=== PATIENT | female | born 1955 | race Caucasian/White ===

== ENCOUNTER 2020-08-30 10:35 | Inpatient (IN) | payer MEDICARE, BC ==
[2020-08-30] MEDS ORDERED: Ondansetron 4 MG Tab.DIS PO PRN (13:44)
[2020-08-30] MEDS ORDERED: Sodium Chloride 0.9% 10 ML Syringe FLUSH PRN (13:44)
[2020-08-30] MEDS ORDERED: Docusate Sodium 100 MG Cap PO PRN (13:44)
[2020-08-30] MEDS ORDERED: Acetaminophen 325 MG Tab PO PRN (13:44)
--- NOTE | 2020-08-30 13:53 | PCM.HP.2 ---
H&P History of Present Illness - General Date of Service: 08/30/20 Admit Problem/Dx: Admission Diagnosis/Problem Admission Diagnosis/Problem Hypoxia, positive COVID-19, history of stroke with aphasia Source of Information: Patient, EMS Notes Reviewed History Limitations: Reports: No Limitations - History of Present Illness Initial Comments - Free Text/Narative: The patient is a 65-year-old lady who was accepted as a direct admission from [facility] for Covid 19. The patient reports that for the past 4 days she has had difficulty with fever and chills along with shortness of breath and has been hypoxic. Patient also says that she has had some nausea associated. The patient has denied any aggravating or relieving factors however, she is more short of breath when she is moving around her house. The patient also has a history of a stroke 4 years ago and she does have residual aphasia. She reportedly had been anticoagulated with Eliquis for her atrial fibrillation however this is not on her medication reconciliation list. The patient says that she also has been very weak and fatigued. The patient also has had a nonproductive cough. The patient has no other complaints at the present time. Onset of Symptoms: Reports: Gradual Duration of Symptoms: Reports: Day(s):, Getting Worse Location: Reports: Chest, Generalized Quality: Reports: Ache Severity: Moderate Improves with: Reports: Other (Oxygen) Worsens with: Reports: Breathing, Movement Context: Reports: Sick Contact Associated Symptoms: Reports: Cough, Fever/Chills, Nausea/Vomiting, Shortness of Breath - Related Data Allergies/Adverse Reactions: Allergies Allergy/AdvReac Type Severity Reaction Status Date / Time esomeprazole [From Nexium] Allergy Other Verified 08/20/16 12:12 Latex, Natural Rubber Allergy Hives Verified 08/20/16 12:12 barium iodide AdvReac Nausea and Verified 08/30/20 13:54 Vomiting Home Medications: Home Meds DULoxetine [Cymbalta] 20 mg PO ASDIRECTED 08/30/20 [History] Diltiazem [Tiazac] 180 mg PO DAILY 08/30/20 [History] Famotidine [Pepcid] 20 mg PO BID 08/30/20 [History] Letrozole [Femara] 2.5 mg PO DAILY 08/30/20 [History] atorvaSTATin [Lipitor] 10 mg PO BEDTIME 10/20/20 [History] Past Medical History HEENT History: Reports: Cataract, Impaired Vision, Other (See Below) Other HEENT History: rt eye damage from stress; sensitivity to sound after stroke- resolved Cardiovascular History: Reports: Afib, Blood Clots/VTE/DVT, High Cholesterol, Other (See Below) Other Cardiovascular History: mitral valve regurg Gastrointestinal History: Reports: Chronic Constipation, GERD, Hemorrhoids, Hiatal Hernia Genitourinary History: Reports: Renal Calculus, Retention, Urinary, Urinary Incontinence 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 Musculoskeletal History: Reports: Arthritis, Back Pain, Chronic Neurological History: Reports: CVA, Neuropathy, Peripheral Other Neuro History: expressive aphasia; dyspagia had peg tube and TPN- resolved swallowing issues post CVA Psychiatric History: Reports: Other (See Below) Other Psychiatric History: started on antidepressant recently Endocrine/Metabolic History: Reports: Other (See Below) Other Endocrine/Metabolic History: elevated hemoglobin A1C 5.6 ; thyroid nodules in past Hematologic History: Reports: Anticoagulation Therapy, Blood Transfusion(s) Oncologic (Cancer) History: Reports: Breast Dermatologic History: Reports: Other (See Below) Other Dermatologic History: shingles - Infectious Disease History Infectious Disease History: Reports: Influenza, Novel Coronavirus, Shingles - Past Surgical History HEENT Surgical History: Reports: Cataract Surgery GI Surgical History: Reports: Cholecystectomy, Colonoscopy, Polypectomy Female Surgical History: Reports: Mastectomy, Oophorectomy Other Female Surgeries/Procedures: right oophrectomy; partial mastectomy on left Musculoskeletal Surgical History: Reports: None Social & Family History - Tobacco Use Tobacco Use Within Last Twelve Months: No - Caffeine Use Caffeine Use: Reports: None - Living Situation & Occupation Living situation: Reports: H&P Review of Systems - Review of Systems: Review Of Systems: See Below General: Reports: Fever, Chills, Malaise, Fatigue HEENT: Reports: No Symptoms Pulmonary: Reports: Shortness of Breath, Cough Cardiovascular: Reports: No Symptoms Gastrointestinal: Reports: Nausea Genitourinary: Reports: No Symptoms Musculoskeletal: Reports: No Symptoms Skin: Reports: No Symptoms Psychiatric: Reports: No Symptoms Neurological: Reports: Pre-Existing Deficit, Difficulty Walking Hematologic/Lymphatic: Reports: No Symptoms Immunologic: Reports: No Symptoms Exam - Exam Exam: See Below - Exam Quality Assessment: Supplemental Oxygen General: Alert, Oriented, Cooperative, Mild Distress HEENT: Conjunctiva Clear, EACs Clear, EOMI, Hearing Intact, Mucosa Moist & [place] Neck: Supple, Trachea Midline Lungs: Clear to Auscultation, Normal Respiratory Effort Cardiovascular: Regular Rate, Irregular Rhythm GI/Abdominal Exam: Normal Bowel Sounds, Soft, Non-Tender, No Distention (Female) Exam: Deferred Rectal (Female) Exam: Deferred Back Exam: Normal Inspection, Full Range of Motion Extremities: Normal Inspection, Normal Range of Motion, No Pedal Edema Skin: Warm, Dry, Intact Neurological: Cranial Nerves Intact, Focal Deficit. No: Normal Gait Neuro Extensive - Mental Status: Alert, Oriented x3 Neuro Extensive - Motor, Sensory, Reflexes: CN II-XII Intact, Expressive Aphasia Psychiatric: Alert, Normal Affect, Normal Mood - Problem List (1) COVID-19 SNOMED Code(s): 546409679 ICD Code: U07.1 - COVID-19 Status: Acute Priority: High Current Visit: Yes (2) Atrial fibrillation SNOMED Code(s): 77048221 ICD Code: I48.91 - UNSPECIFIED ATRIAL FIBRILLATION Status: Chronic Priority: High Current Visit: Yes Qualifiers: Atrial fibrillation type: persistent (not longstanding) Qualified Code(s): I48.19 - Other persistent atrial fibrillation; I48.1 - Persistent atrial fibrillation (3) Current use of retirement anticoagulation SNOMED Code(s): 831538549 ICD Code: Z79.01 - 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 (CURRENT) USE OF ANTICOAGULANTS Status: Chronic Priority: High Current Visit: Yes (4) Aphasia SNOMED Code(s): 33735612 ICD Code: R47.01 - APHASIA Status: Chronic Priority: High Current Visit: Yes (5) Personal history of stroke with residual effects SNOMED Code(s): 3383084065834 ICD Code: I69.30 - UNSPECIFIED SEQUELAE OF CEREBRAL INFARCTION Status: Chronic Priority: Medium Current Visit: Yes Problem List Initiated/Reviewed/Updated: Yes Orders Last 24hrs: Active Orders 24 hr Category Date Time Status Patient Status [ADT] Routine ADT 08/30/20 13:44 Ordered Cardiac Monitoring [RC] CONTINUOUS Care 08/30/20 13:47 Ordered Oxygen Therapy [RC] PRN Care 08/30/20 13:44 Ordered Peripheral IV Care [RC] . DIRECTED Care 08/30/20 13:50 Ordered Up ad Liana [RC] ASDIRECTED Care 08/30/20 13:44 Ordered VTE/DVT Education [RC] PER UNIT ROUTINE Care 08/30/20 13:44 Ordered Vital Signs [RC] Q4H Care 08/30/20 13:44 Ordered OT Evaluation and Treatment [CONS] Routine Cons 08/30/20 13:44 Ordered PT Evaluation and Treatment [CONS] Routine Cons 08/30/20 13:44 Ordered Heart Healthy Diet [DIET] Diet 08/30/20 Dinner Ordered Chest 1V Frontal [CR] Routine Exams 08/30/20 13:44 Ordered CBC WITH AUTO DIFF [HEME] Routine Lab 08/30/20 13:44 Ordered COMPREHENSIVE METABOLIC PN,CMP [CHEM] Routine Lab 08/30/20 13:44 Ordered FERRITIN [CHEM] Routine Lab 08/30/20 13:44 Ordered LACTATE DEHYDROGENASE,LDH [CHEM] Routine Lab 08/30/20 13:44 Ordered MAGNESIUM [CHEM] Routine Lab 08/30/20 13:44 Ordered PHOSPHORUS [CHEM] Routine Lab 08/30/20 13:44 Ordered PRO B-TYPE NATRIUR PEPT,BNPPRO [CHEM] Routine Lab 08/30/20 13:44 Ordered PROCALCITONIN [REF] Routine Lab 08/30/20 13:44 Ordered TROPONIN I [CHEM] Routine Lab 08/30/20 13:44 Ordered VITAMIN D,25-HYDROXY [CHEM] Routine Lab 08/30/20 13:44 Ordered Acetaminophen [TylenoL] Med 08/30/20 13:44 Ordered 650 mg PO Q4H PRN DULoxetine [Cymbalta] Med 08/30/20 14:00 Ordered 20 mg PO ASDIRECTED Diltiazem [Tiazac] Med 08/31/20 09:00 Ordered 180 mg PO DAILY Docusate Sodium [Colace] Med 08/30/20 13:44 Ordered 100 mg PO BID PRN Enoxaparin [Lovenox] Med 08/30/20 14:00 Ordered 40 mg SUBCUT DAILY Famotidine [Pepcid] Med 08/30/20 21:00 Ordered 20 mg PO BID Letrozole Med 08/31/20 09:00 Ordered 2.5 mg PO DAILY Ondansetron [Zofran ODT] Med 08/30/20 13:44 Ordered 4 mg PO Q6H PRN Sodium Chloride 0.9% [Normal Saline] 1,000 ml Med 08/30/20 13:45 Ordered IV ASDIRECTED Sodium Chloride 0.9% [Saline Flush] Med 08/30/20 13:44 Ordered 10 ml FLUSH ASDIRECTED PRN Temazepam [Restoril] Med 08/30/20 13:44 Ordered 7.5 mg PO BEDTIME PRN atorvaSTATin Med 08/30/20 21:00 Ordered 10 mg PO BEDTIME Peripheral IV Insertion Adult [OM.PC] Routine Oth 08/30/20 13:44 Ordered Resuscitation Status Routine Resus Stat 08/30/20 13:44 Ordered Medication Orders Acetaminophen (Tylenol) 650 mg PO Q4H PRN PRN Reason: Pain (Mild 1-3)/fever Docusate Sodium (Colace) 100 mg PO BID PRN PRN Reason: Constipation Enoxaparin Sodium (Lovenox) 40 mg SUBCUT DAILY JOYA Sodium Chloride (Normal Saline) 1,000 mls @ 75 mls/hr IV ASDIRECTED JOYA Ondansetron HCl (Zofran Odt) 4 mg PO Q6H PRN PRN Reason: nausea, able to take PO Sodium Chloride (Saline Flush) 10 ml FLUSH ASDIRECTED PRN PRN Reason: Keep Vein Open Temazepam (Restoril) 7.5 mg PO BEDTIME PRN PRN Reason: Sleep Assessment/Plan Comment:: The patient is a 65-year-old lady who has been admitted as an inpatient for the treatment of Covid. The patient will be started on the Covid protocol consisting of remdesivir 200 mg x 1 dose followed by 100 mg IV daily for 4 doses. The patient also has been started on dexamethasone starting tomorrow. The patient says that she is taking Eliquis however is not in her medication reconciliation and as a result of this the patient will be started on Lovenox. The home Eliquis will be discontinued for now. I have ordered a comprehensive set of laboratory testings for the COVID-19 work-up. A portable chest x-ray is also been ordered. The patient will have a healthy diet as tolerated. PT OT has been ordered for the patient as a result of her stroke 4 years ago. The patient also has been encouraged to ambulate. Patient also has been recommended for convalescent plasma. I have discussed with the patient the risk benefits and alternatives of both remdesivir and convalescent plasma. 1. I spoke with Carola to provide information about convalescent plasma for Sonya 2. I offered them the Facts Sheet for Patients and Parents/Caregivers for COVID-19 convalescent plasma to read and review. 3. I stated that the therapy has been approved by the Emergency Use Authorization (EUA) process and not fully been FDA reviewed or approved. 4. I shared potential risk from the therapy including transmission of blood borne pathogens such as HIV and hepatitis C, allergic and transfusion related reactions, post-transfusion purpura. Additionally, theoretical risks including a phenomenon called anti-body dependent enhancement of infection such as seen in dengue fever or attenuation of an immune response that may make patients more susceptible to re-infection. 5. I discussed there are other potential treatment options that are currently not FDA approved to treat COVID-19. 6. Discussed with the patient that is not an exclusion for convalescent plasma treatment, but the therapy has not been fully evaluated in patients. 7. Offered the opportunity to ask questions and all questions were answered. 8. Sonya voiced understanding and agreed to proceed with treatment for Sonya. 1. I spoke with Sonya to provide information about Remdesvir for her. 2. I offered them the Facts Sheet for Patients and Parents/Caregivers for COVID-19 Remdesvir to read and review. 3. I stated that the therapy has been approved by the Emergency Use Authorization (EUA) process and not fully been FDA reviewed or approved. 4. The patient meets EUA requirements. 5. I shared that the drug may cause liver abnormalities and infusion related side effects. Additionally, other side effects are possible but not known as the drug has had limited studies. 6. I discussed there are other potential treatment options that are currently not FDA approved to treat COVID-19. Plasma treatment, but the therapy has not been fully evaluated in patients. 7. Discussed with the patient that is not an exclusion for Remdesvir treatment. 8. Offered the opportunity to ask questions and all questions were answered. 9. Sonya voiced understanding and agreed to proceed with treatment for her. - Mortality Measure Prognosis:: Good
[2020-08-30] MEDS ORDERED: Dexamethasone 4 MG/ML SDV IV SCH (14:00)
[2020-08-30] MEDS ORDERED: DULoxetine 20 MG Cap PO SCH (14:00)
[2020-08-30] MEDS ORDERED: Sodium Chloride 0.9% 0 ML ONE (14:24)
[2020-08-30] MEDS: Sodium Chloride 0.9% 1,000 ML IV SCH (14:26)
[2020-08-30] MEDS: Enoxaparin 40 MG/0.4 ML Syringe SUBCUT SCH (14:27)
[2020-08-30] MEDS: Famotidine 20 MG Tab PO SCH (20:34)
[2020-08-30] MEDS: Simvastatin 10 MG Tab PO SCH (20:34)
[2020-08-30] MEDS ORDERED: Temazepam 7.5 MG Cap PO PRN (21:00)
[2020-08-31] MEDS: Sodium Chloride 0.9% 1,000 ML IV SCH ×2 (04:51→17:36)
[2020-08-31] MEDS: Enoxaparin 40 MG/0.4 ML Syringe SUBCUT SCH (08:31)
[2020-08-31] MEDS: Famotidine 20 MG Tab PO SCH ×2 (08:32→20:31)
[2020-08-31] MEDS: Diltiazem 180 MG Cap.CD PO SCH (08:32)
[2020-08-31] MEDS ORDERED: Dexamethasone 4 MG/ML SDV IV SCH (09:00)
[2020-08-31] MEDS ORDERED: Diltiazem 180 MG Cap.CD PO SCH (09:00)
--- NOTE | 2020-08-31 09:44 | PCM.PN ---
- General Info Date of Service: 08/31/20 Admission Dx/Problem (Free Text): Admission Diagnosis/Problem Admission Diagnosis/Problem Hypoxia, positive COVID-19, history of stroke with aphasia Subjective Update: The patient is a 65-year-old lady who was admitted yesterday secondary to hypoxia and COVID-19. The patient today says that she feels a little bit better. She has been tolerating diet. She has been ambulating. She does need assistance secondary to residual effects from an old stroke. Functional Status: Reports: Pain Controlled, Tolerating Diet, Ambulating - Review of Systems General: Reports: Weakness HEENT: Reports: No Symptoms Pulmonary: Reports: Shortness of Breath Cardiovascular: Reports: Palpitations (Chronic A. fib) Gastrointestinal: Reports: No Symptoms Genitourinary: Reports: No Symptoms Musculoskeletal: Reports: No Symptoms Skin: Reports: No Symptoms Neurological: Reports: Pre-Existing Deficit, Trouble Speaking Psychiatric: Reports: No Symptoms - Patient Data Vitals - Most Recent: Last Vital Signs Temp 36.6 C 08/31/20 08:02 Pulse 69 08/31/20 08:02 Resp 16 08/31/20 08:02 BP 120/68 08/31/20 08:02 Pulse Ox 91 L 08/31/20 08:02 Weight - Most Recent: 63.458 kg I&O - Last 24 Hours: Intake & Output 08/30/20 08/31/20 08/31/20 22:59 06:59 14:59 Intake Total 1175 700 Output Total 700 1050 Balance 475 -350 Lab Results Last 24 Hours: Laboratory Results - last 24 hr 08/30/20 08/30/20 08/30/20 Range/Units 14:10 14:10 14:10 WBC 9.13 (3.98-10.04) K/mm3 RBC 4.20 (3.98-5.22) M/mm3 Hgb 12.5 (11.2-15.7) gm/dl Hct 37.6 (34.1-44.9) % MCV 89.5 D (79.4-94.8) fl MCH 29.8 (25.6-32.2) pg MCHC 33.2 (32.2-35.5) g/dl RDW Std Deviation 45.9 (36.4-46.3) fL Plt Count 241 (182-369) K/mm3 MPV 9.2 L (9.4-12.3) fl Neut % (Auto) 95.0 H (34.0-71.1) % Lymph % (Auto) 2.5 L (19.3-51.7) % Amelia % (Auto) 2.1 L (4.7-12.5) % Eos % (Auto) 0.1 L (0.7-5.8) Baso % (Auto) 0.2 (0.1-1.2) % Neut # (Auto) 8.67 H (1.56-6.13) K/mm3 Lymph # (Auto) 0.23 L (1.18-3.74) K/mm3 Amelia # (Auto) 0.19 L (0.24-0.36) K/mm3 Eos # (Auto) 0.01 L (0.04-0.36) K/mm3 Baso # (Auto) 0.02 (0.01-0.08) K/mm3 Manual Slide Review Abnormal smear Sodium 133 L (136-145) mEq/L Potassium 4.1 (3.5-5.1) mEq/L Chloride 98 (98-107) mEq/L Carbon Dioxide 23 (21-32) mEq/L Anion Gap 16.1 H (5-15) BUN 6 L (7-18) mg/dL Creatinine 0.7 (0.55-1.02) mg/dL Est Cr Clr Drug Dosing TNP Estimated GFR (MDRD) > 60 (>60) mL/min BUN/Creatinine Ratio 8.6 L (14-18) Glucose 153 H (80-115) mg/dL Calcium 9.3 (8.5-10.1) mg/dL Phosphorus 2.7 (2.6-4.7) mg/dL Magnesium 1.9 (1.8-2.4) mg/dl Ferritin (8-252) ng/ml Total Bilirubin 0.4 (0.2-1.0) mg/dL AST 30 (15-37) U/L ALT 43 (14-59) U/L Alkaline Phosphatase 67 (46-116) U/L Lactate Dehydrogenase 286 H (81-234) U/L Troponin I < 0.017 (0.00-0.056) ng/mL NT-Pro-B Natriuret Pep 196 H (0-125) pg/mL Total Protein 6.9 (6.4-8.2) g/dl Albumin 2.6 L (3.4-5.0) g/dl Globulin 4.3 gm/dL Albumin/Globulin Ratio 0.6 L (1-2) Vitamin D 25-Hydroxy 46.0 (30.0-100.0) ng/ml Blood Type 08/30/20 08/30/20 Range/Units 14:10 14:10 WBC (3.98-10.04) K/mm3 RBC (3.98-5.22) M/mm3 Hgb (11.2-15.7) gm/dl Hct (34.1-44.9) % MCV (79.4-94.8) fl MCH (25.6-32.2) pg MCHC (32.2-35.5) g/dl RDW Std Deviation (36.4-46.3) fL Plt Count (182-369) K/mm3 MPV (9.4-12.3) fl Neut % (Auto) (34.0-71.1) % Lymph % (Auto) (19.3-51.7) % Amelia % (Auto) (4.7-12.5) % Eos % (Auto) (0.7-5.8) Baso % (Auto) (0.1-1.2) % Neut # (Auto) (1.56-6.13) K/mm3 Lymph # (Auto) (1.18-3.74) K/mm3 Amelia # (Auto) (0.24-0.36) K/mm3 Eos # (Auto) (0.04-0.36) K/mm3 Baso # (Auto) (0.01-0.08) K/mm3 Manual Slide Review Sodium (136-145) mEq/L Potassium (3.5-5.1) mEq/L Chloride (98-107) mEq/L Carbon Dioxide (21-32) mEq/L Anion Gap (5-15) BUN (7-18) mg/dL Creatinine (0.55-1.02) mg/dL Est Cr Clr Drug Dosing Estimated GFR (MDRD) (>60) mL/min BUN/Creatinine Ratio (14-18) Glucose (80-115) mg/dL Calcium (8.5-10.1) mg/dL Phosphorus (2.6-4.7) mg/dL Magnesium (1.8-2.4) mg/dl Ferritin 775 H (8-252) ng/ml Total Bilirubin (0.2-1.0) mg/dL AST (15-37) U/L ALT (14-59) U/L Alkaline Phosphatase (46-116) U/L Lactate Dehydrogenase (81-234) U/L Troponin I (0.00-0.056) ng/mL NT-Pro-B Natriuret Pep (0-125) pg/mL Total Protein (6.4-8.2) g/dl Albumin (3.4-5.0) g/dl Globulin gm/dL Albumin/Globulin Ratio (1-2) Vitamin D 25-Hydroxy (30.0-100.0) ng/ml Blood Type A POSITIVE Med Orders - Current: Current Medications Acetaminophen (Tylenol) 650 mg PO Q4H PRN PRN Reason: Pain (Mild 1-3)/fever Dexamethasone (Dexamethasone) 6 mg IV DAILY [facility] Last Admin: 08/31/20 08:33 Dose: 6 mg Documented by: Diltiazem HCl (Cardizem Cd) 180 mg PO DAILY [facility] Last Admin: 08/31/20 08:32 Dose: 180 mg Documented by: Docusate Sodium (Colace) 100 mg PO BID PRN PRN Reason: Constipation Duloxetine HCl (Cymbalta) 20 mg PO Q48H [facility] Enoxaparin Sodium (Lovenox) 40 mg SUBCUT DAILY [facility] Last Admin: 08/31/20 08:31 Dose: 40 mg Documented by: Famotidine (Pepcid) 20 mg PO BID [facility] Last Admin: 08/31/20 08:32 Dose: Not Given Documented by: Sodium Chloride (Normal Saline) 1,000 mls @ 75 mls/hr IV ASDIRECTED [facility] Last Admin: 08/31/20 04:51 Dose: 75 mls/hr Documented by: Remdesivir 100 mg/ Sodium (Chloride) 100 mls @ 100 mls/hr IV Q24H [facility] Stop: 09/03/20 15:29 Ondansetron HCl (Zofran Odt) 4 mg PO Q6H PRN PRN Reason: nausea, able to take PO Letrozole 2.5 Mg 0 each PO DAILY [facility] Simvastatin (Zocor) 10 mg PO BEDTIME [facility] Last Admin: 08/30/20 20:34 Dose: 10 mg Documented by: Sodium Chloride (Saline Flush) 10 ml FLUSH ASDIRECTED PRN PRN Reason: Keep Vein Open Temazepam (Restoril) 7.5 mg PO BEDTIME PRN PRN Reason: Sleep Discontinued Medications Dexamethasone (Dexamethasone) 6 mg IV DAILY [facility] Last Admin: 08/30/20 14:07 Dose: Not Given Documented by: Diltiazem HCl (Cardizem Cd) 180 mg PO DAILY [facility] Duloxetine HCl (Cymbalta) 20 mg PO DAILY [facility] Last Admin: 08/30/20 14:28 Dose: Not Given Documented by: Remdesivir 200 mg/ Sodium (Chloride) 250 mls @ 250 mls/hr IV ONETIME ONE Stop: 08/30/20 15:29 Last Admin: 08/30/20 14:27 Dose: 250 mls/hr Documented by: Sodium Chloride (Normal Saline) Confirm Administered Dose 250 mls @ as directed .ROUTE .STK-MED ONE Stop: 08/30/20 14:25 Last Admin: 08/30/20 14:29 Dose: Not Given Documented by: - Exam Quality Assessment: Supplemental Oxygen, DVT Prophylaxis General: Alert, Oriented, Cooperative, No Acute Distress HEENT: Pupils Equal, Pupils Reactive, EOMI Neck: Supple, Trachea Midline Lungs: Normal Respiratory Effort, Rales (Bibasilar) Cardiovascular: Regular Rate, Irregular Rhythm GI/Abdominal Exam: Normal Bowel Sounds, Soft, No Distention (Female) Exam: Deferred Back Exam: Normal Inspection, Full Range of Motion Extremities: Normal Inspection, No Pedal Edema Skin: Warm, Dry, Intact Neurological: No New Focal Deficit Psy/Mental Status: Alert, Normal Affect, Normal Mood Sepsis Event Note - Evaluation Sepsis Screening Result: No Definite Risk - Focused Exam Vital Signs: Vital Signs Temp Pulse Resp BP Pulse Ox Pulse Ox 08/31/20 08:02 36.6 C 69 16 120/68 91 L 08/31/20 05:05 93 L 08/31/20 04:56 36.4 C 82 20 125/56 L 94 L 08/30/20 21:45 96 - Problem List & Annotations (1) COVID-19 SNOMED Code(s): 078262255 Code(s): U07.1 - COVID-19 Status: Acute Priority: High Current Visit: Yes (2) Atrial fibrillation SNOMED Code(s): 24002476 Code(s): I48.91 - UNSPECIFIED ATRIAL FIBRILLATION Status: Chronic Priority: High Current Visit: Yes Qualifiers: Atrial fibrillation type: persistent (not longstanding) Qualified Code(s): I48.19 - Other persistent atrial fibrillation; I48.1 - Persistent atrial fibrillation (3) Current use of oysterman anticoagulation SNOMED Code(s): 299029475 Code(s): Z79.01 - CARE HOME (CURRENT) USE OF ANTICOAGULANTS Status: Chronic Priority: High Current Visit: Yes (4) Aphasia SNOMED Code(s): 27376453 Code(s): R47.01 - APHASIA Status: Chronic Priority: High Current Visit: Yes (5) Personal history of stroke with residual effects SNOMED Code(s): 1485109736361 Code(s): I69.30 - UNSPECIFIED SEQUELAE OF CEREBRAL INFARCTION Status: Chronic Priority: Medium Current Visit: Yes - Problem List Review Problem List Initiated/Reviewed/Updated: Yes - My Orders Last 24 Hours: My Active Orders 08/30/20 13:44 Patient Status [ADT] Routine Oxygen Therapy [RC] PRN Up ad Liana [RC] DAILY VTE/DVT Education [RC] DAILY Vital Signs [RC] 00,04,08,12,16,20 OT Evaluation and Treatment [CONS] Routine PT Evaluation and Treatment [CONS] Routine Chest 1V Frontal [CR] Routine Acetaminophen [TylenoL] 650 mg PO Q4H PRN Docusate Sodium [Colace] 100 mg PO BID PRN Ondansetron [Zofran ODT] 4 mg PO Q6H PRN Sodium Chloride 0.9% [Saline Flush] 10 ml FLUSH ASDIRECTED PRN Peripheral IV Insertion Adult [OM.PC] Routine Resuscitation Status Routine 08/30/20 13:45 Sodium Chloride 0.9% [Normal Saline] 1,000 ml IV ASDIRECTED 08/30/20 13:50 Peripheral IV Care [RC] Q2HR 08/30/20 13:59 Transfuse Fresh Frozen Plasma [COMM] Routine 08/30/20 14:00 Enoxaparin [Lovenox] 40 mg SUBCUT DAILY 08/30/20 14:10 PROCALCITONIN [REF] Routine 08/30/20 Dinner Heart Healthy Diet [DIET] 08/30/20 21:00 Famotidine [Pepcid] 20 mg PO BID Simvastatin [Zocor] 10 mg PO BEDTIME Temazepam [Restoril] 7.5 mg PO BEDTIME PRN 08/31/20 09:00 Diltiazem [Cardizem CD] 180 mg PO DAILY Patient's Own Medication [Ptom] 0 each PO DAILY dexAMETHasone [Dexamethasone] 6 mg IV DAILY 08/31/20 14:30 Remdesivir (Eua) [Remdesivir (EUA)] 100 mg Sodium Chloride 0.9% [Normal Saline] 100 ml IV Q24H 09/01/20 09:00 DULoxetine [Cymbalta] 20 mg PO Q48H - Plan Plan:: The patient is a 65-year-old lady who has been admitted as an inpatient for the treatment of Covid. The patient will be started on the Covid protocol consisting of remdesivir 200 mg x 1 dose followed by 100 mg IV daily for 4 doses. The patient also has been started on dexamethasone starting tomorrow. The patient says that she is taking Eliquis however is not in her medication reconciliation and as a result of this the patient will be started on Lovenox. The home Eliquis will be discontinued for now. I have ordered a comprehensive set of laboratory testings for the COVID-19 work-up. A portable chest x-ray is also been ordered. The patient will have a healthy diet as tolerated. PT OT has been ordered for the patient as a result of her stroke 4 years ago. The patient also has been encouraged to ambulate. Patient also has been recommended for convalescent plasma. I have discussed with the patient the risk benefits and alternatives of both remdesivir and convalescent plasma. 1. I spoke with Carola to provide information about convalescent plasma for Sonya 2. I offered them the Facts Sheet for Patients and Parents/Caregivers for COVID-19 convalescent plasma to read and review. 3. I stated that the therapy has been approved by the Emergency Use Authorization (EUA) process and not fully been FDA reviewed or approved. 4. I shared potential risk from the therapy including transmission of blood borne pathogens such as HIV and hepatitis C, allergic and transfusion related reactions, post-transfusion purpura. Additionally, theoretical risks including a phenomenon called anti-body dependent enhancement of infection such as seen in dengue fever or attenuation of an immune response that may make patients more susceptible to re-infection. 5. I discussed there are other potential treatment options that are currently not FDA approved to treat COVID-19. 6. Discussed with the patient that is not an exclusion for convalescent plasma treatment, but the therapy has not been fully evaluated in patients. 7. Offered the opportunity to ask questions and all questions were answered. 8. Sonya voiced understanding and agreed to proceed with treatment for Sonya. 1. I spoke with Sonya to provide information about Remdesvir for her. 2. I offered them the Facts Sheet for Patients and Parents/Caregivers for COVID-19 Remdesvir to read and review. 3. I stated that the therapy has been approved by the Emergency Use Authorization (EUA) process and not fully been FDA reviewed or approved. 4. The patient meets EUA requirements. 5. I shared that the drug may cause liver abnormalities and infusion related side effects. Additionally, other side effects are possible but not known as the drug has had limited studies. 6. I discussed there are other potential treatment options that are currently not FDA approved to treat COVID-19. Plasma treatment, but the therapy has not been fully evaluated in patients. 7. Discussed with the patient that is not an exclusion for Remdesvir treatment. 8. Offered the opportunity to ask questions and all questions were answered. 9. Sonya voiced understanding and agreed to proceed with treatment for her. 08/31/2020 The patient is a 65-year-old lady who was admitted secondary to COVID-19. The patient will be continued on the COVID-19 protocol with a remdesivir, dexa methasone and anticoagulation. She is currently on Lovenox and she will continue this. The patient has been recommended to continue with a heart healthy diet. PT OT is to work with the patient. Repeat laboratory studies have been ordered for the morning in order to monitor kidney function. The patient should be appropriate for discharge after completion of the remdesivir. Case management should be able to help arrange transportation or family pickup when discharged as the patient lives in [place] an hour away.
[2020-08-31] MEDS: REMDESIVIR (EUA) 100 MG in Sodium Chloride 0.9% 100 ML IV SCH (13:57)
[2020-08-31] MEDS: Simvastatin 10 MG Tab PO SCH ×2 (17:37→20:32)
[2020-09-01] MEDS: Sodium Chloride 0.9% 1,000 ML IV SCH (06:02)
--- NOTE | 2020-09-01 07:31 | PCM.PN ---
- General Info Date of Service: 09/01/20 Admission Dx/Problem (Free Text): Admission Diagnosis/Problem Admission Diagnosis/Problem Hypoxia, positive COVID-19, history of stroke with aphasia Subjective Update: Patient is a 65-year-old lady who is excepted has a direct admission for COVID- 19. The patient says that she is doing much better. The patient says that her breathing has improved. She has been able to tolerate the COVID-19 treatment protocol. Functional Status: Reports: Pain Controlled, Tolerating Diet, Incentive Spirometry - Review of Systems General: Reports: Weakness HEENT: Reports: No Symptoms Pulmonary: Reports: Shortness of Breath Cardiovascular: Reports: No Symptoms Gastrointestinal: Reports: No Symptoms Genitourinary: Reports: No Symptoms Musculoskeletal: Reports: No Symptoms Skin: Reports: No Symptoms Neurological: Reports: Pre-Existing Deficit Psychiatric: Reports: No Symptoms - Patient Data Vitals - Most Recent: Last Vital Signs Temp 36.7 C 09/01/20 05:58 Pulse 73 09/01/20 05:58 Resp 18 09/01/20 05:58 BP 98/75 09/01/20 05:58 Pulse Ox 92 L 09/01/20 05:58 Weight - Most Recent: 64.637 kg I&O - Last 24 Hours: Intake & Output 08/31/20 09/01/20 09/01/20 22:59 06:59 14:59 Intake Total 2780 700 Output Total 900 1650 Balance 1880 -950 Lab Results Last 24 Hours: Laboratory Results - last 24 hr 08/30/20 09/01/20 09/01/20 Range/Units 14:10 04:23 04:23 WBC 11.78 H (3.98-10.04) K/mm3 RBC 3.49 L (3.98-5.22) M/mm3 Hgb 10.3 L D (11.2-15.7) gm/dl Hct 31.8 L (34.1-44.9) % MCV 91.1 (79.4-94.8) fl MCH 29.5 (25.6-32.2) pg MCHC 32.4 (32.2-35.5) g/dl RDW Std Deviation 48.0 H (36.4-46.3) fL Plt Count 248 (182-369) K/mm3 MPV 10.3 (9.4-12.3) fl Neut % (Auto) 91.0 H (34.0-71.1) % Lymph % (Auto) 4.9 L (19.3-51.7) % [place] % (Auto) 3.6 L (4.7-12.5) % Eos % (Auto) 0.1 L (0.7-5.8) Baso % (Auto) 0.1 (0.1-1.2) % Neut # (Auto) 10.72 H (1.56-6.13) K/mm3 Lymph # (Auto) 0.58 L (1.18-3.74) K/mm3 [place] # (Auto) 0.42 H (0.24-0.36) K/mm3 Eos # (Auto) 0.01 L (0.04-0.36) K/mm3 Baso # (Auto) 0.01 (0.01-0.08) K/mm3 Sodium 138 (136-145) mEq/L Potassium 4.0 (3.5-5.1) mEq/L Chloride 106 (98-107) mEq/L Carbon Dioxide 24 (21-32) mEq/L Anion Gap 12.0 (5-15) BUN 17 (7-18) mg/dL Creatinine 0.7 (0.55-1.02) mg/dL Est Cr Clr Drug Dosing 64.51 mL/min Estimated GFR (MDRD) > 60 (>60) mL/min BUN/Creatinine Ratio 24.3 H (14-18) Glucose 134 H (80-115) mg/dL Calcium 8.8 (8.5-10.1) mg/dL Phosphorus 3.2 (2.6-4.7) mg/dL Magnesium 1.9 (1.8-2.4) mg/dl Total Bilirubin 0.2 (0.2-1.0) mg/dL AST 27 (15-37) U/L ALT 47 (14-59) U/L Alkaline Phosphatase 52 (46-116) U/L C-Reactive Protein 12.4 H* (<1.0) mg/dL Total Protein 5.6 L (6.4-8.2) g/dl Albumin 2.1 L (3.4-5.0) g/dl Globulin 3.5 gm/dL Albumin/Globulin Ratio 0.6 L (1-2) Procalcitonin 0.29 H (<0.10) ng/mL Med Orders - Current: Current Medications Acetaminophen (Tylenol) 650 mg PO Q4H PRN PRN Reason: Pain (Mild 1-3)/fever Dexamethasone (Dexamethasone) 6 mg PO DAILY [facility] Stop: 09/08/20 09:01 Diltiazem HCl (Cardizem Cd) 180 mg PO DAILY [facility] Last Admin: 08/31/20 08:32 Dose: 180 mg Documented by: Docusate Sodium (Colace) 100 mg PO BID PRN PRN Reason: Constipation Duloxetine HCl (Cymbalta) 20 mg PO Q48H [facility] Enoxaparin Sodium (Lovenox) 40 mg SUBCUT DAILY [facility] Last Admin: 08/31/20 08:31 Dose: 40 mg Documented by: Famotidine (Pepcid) 20 mg PO BID [facility] Last Admin: 08/31/20 20:31 Dose: Not Given Documented by: Sodium Chloride (Normal Saline) 1,000 mls @ 75 mls/hr IV ASDIRECTED [facility] Last Admin: 09/01/20 06:02 Dose: 75 mls/hr Documented by: Remdesivir 100 mg/ Sodium (Chloride) 100 mls @ 100 mls/hr IV Q24H [facility] Stop: 09/03/20 15:29 Last Admin: 08/31/20 13:57 Dose: 100 mls/hr Documented by: Ondansetron HCl (Zofran Odt) 4 mg PO Q6H PRN PRN Reason: nausea, able to take PO Letrozole 2.5 Mg (Ptom) 0 each PO DAILY [facility] Simvastatin (Zocor) 10 mg PO BEDTIME [facility] Last Admin: 08/31/20 20:32 Dose: Not Given Documented by: Sodium Chloride (Saline Flush) 10 ml FLUSH ASDIRECTED PRN PRN Reason: Keep Vein Open Temazepam (Restoril) 7.5 mg PO BEDTIME PRN PRN Reason: Sleep Discontinued Medications Dexamethasone (Dexamethasone) 6 mg IV DAILY [facility] Last Admin: 08/30/20 14:07 Dose: Not Given Documented by: Dexamethasone (Dexamethasone) 6 mg IV DAILY [facility] Last Admin: 08/31/20 08:33 Dose: 6 mg Documented by: Diltiazem HCl (Cardizem Cd) 180 mg PO DAILY [facility] Duloxetine HCl (Cymbalta) 20 mg PO DAILY [facility] Last Admin: 08/30/20 14:28 Dose: Not Given Documented by: Remdesivir 200 mg/ Sodium (Chloride) 250 mls @ 250 mls/hr IV ONETIME ONE Stop: 08/30/20 15:29 Last Admin: 08/30/20 14:27 Dose: 250 mls/hr Documented by: Sodium Chloride (Normal Saline) Confirm Administered Dose 250 mls @ as directed .ROUTE .STK-MED ONE Stop: 08/30/20 14:25 Last Admin: 08/30/20 14:29 Dose: Not Given Documented by: Letrozole 2.5 Mg 0 each PO DAILY [facility] Last Admin: 08/31/20 13:54 Dose: Not Given Documented by: Letrozole 2.5 Mg 0 each PO ONETIME ONE Stop: 08/31/20 14:01 Last Admin: 08/31/20 13:56 Dose: 1 each Documented by: - Exam Quality Assessment: Supplemental Oxygen, DVT Prophylaxis General: Alert, Oriented, Cooperative, No Acute Distress HEENT: Pupils Equal, Pupils Reactive Neck: Supple, Trachea Midline Lungs: Normal Respiratory Effort, Rales Cardiovascular: Regular Rate, No Murmurs, Irregular Rhythm GI/Abdominal Exam: Normal Bowel Sounds, Soft, No Distention (Female) Exam: Deferred Back Exam: Normal Inspection, Full Range of Motion Extremities: Normal Inspection, Normal Range of Motion, No Pedal Edema Skin: Warm, Dry, Intact Neurological: No New Focal Deficit. No: Normal Speech (Expressive aphasia) Psy/Mental Status: Alert, Normal Affect, Normal Mood Sepsis Event Note - Evaluation Sepsis Screening Result: No Definite Risk - Focused Exam Vital Signs: Vital Signs Temp Pulse Resp BP Pulse Ox Pulse Ox 09/01/20 05:58 36.7 C 73 18 98/75 92 L 08/31/20 23:41 36.8 C 60 20 106/50 L 94 L 08/31/20 21:25 97 08/31/20 19:48 93 L 08/31/20 19:46 36.7 C 86 14 105/57 L 90 L - Problem List & Annotations (1) COVID-19 SNOMED Code(s): 439574477 Code(s): U07.1 - COVID-19 Status: Acute Priority: High Current Visit: Yes (2) Atrial fibrillation SNOMED Code(s): 27995446 Code(s): I48.91 - UNSPECIFIED ATRIAL FIBRILLATION Status: Chronic Priority: High Current Visit: Yes Qualifiers: Atrial fibrillation type: persistent (not longstanding) Qualified Code(s): I48.19 - Other persistent atrial fibrillation; I48.1 - Persistent atrial fibrillation (3) Current use of [employer] anticoagulation SNOMED Code(s): 142038460 Code(s): Z79.01 - LONGTERM (CURRENT) USE OF ANTICOAGULANTS Status: Chronic Priority: High Current Visit: Yes (4) Aphasia SNOMED Code(s): 96016536 Code(s): R47.01 - APHASIA Status: Chronic Priority: High Current Visit: Yes (5) Personal history of stroke with residual effects SNOMED Code(s): 9839187012281 Code(s): I69.30 - UNSPECIFIED SEQUELAE OF CEREBRAL INFARCTION Status: Chronic Priority: Medium Current Visit: Yes - Problem List Review Problem List Initiated/Reviewed/Updated: Yes - My Orders Last 24 Hours: My Active Orders 08/31/20 09:00 Diltiazem [Cardizem CD] 180 mg PO DAILY 08/31/20 Lunch Regular Diet [DIET] 08/31/20 12:56 Incentive Breathing [RT Incentive Spirometry] [RC] ASDIRECTED RT Chest Physiotherapy [RC] ASDIRECTED 08/31/20 14:30 Remdesivir (Eua) [Remdesivir (EUA)] 100 mg Sodium Chloride 0.9% [Normal Saline] 100 ml IV Q24H 09/01/20 04:23 CBC WITH AUTO DIFF [HEME] AM 09/01/20 05:11 D-DIMER QUANTITATIVE [COAG] AM 09/01/20 09:00 DULoxetine [Cymbalta] 20 mg PO Q48H dexAMETHasone 6 mg PO DAILY 09/01/20 12:00 Patient's Own Medication [Ptom] 0 each PO DAILY - Plan Plan:: The patient is a 65-year-old lady who has been admitted as an inpatient for the treatment of Covid. The patient will be started on the Covid protocol consisting of remdesivir 200 mg x 1 dose followed by 100 mg IV daily for 4 doses. The patient also has been started on dexamethasone starting tomorrow. The patient says that she is taking Eliquis however is not in her medication reconciliation and as a result of this the patient will be started on Lovenox. The home Eliquis will be discontinued for now. I have ordered a comprehensive set of laboratory testings for the COVID-19 work-up. A portable chest x-ray is also been ordered. The patient will have a healthy diet as tolerated. PT OT has been ordered for the patient as a result of her stroke 4 years ago. The patient also has been encouraged to ambulate. Patient also has been recommended for convalescent plasma. I have discussed with the patient the risk benefits and alternatives of both remdesivir and convalescent plasma. 1. I spoke with Carola to provide information about convalescent plasma for Sonya 2. I offered them the Facts Sheet for Patients and Parents/Caregivers for COVID-19 convalescent plasma to read and review. 3. I stated that the therapy has been approved by the Emergency Use Authorization (EUA) process and not fully been FDA reviewed or approved. 4. I shared potential risk from the therapy including transmission of blood borne pathogens such as HIV and hepatitis C, allergic and transfusion related reactions, post-transfusion purpura. Additionally, theoretical risks including a phenomenon called anti-body dependent enhancement of infection such as seen in dengue fever or attenuation of an immune response that may make patients more susceptible to re-infection. 5. I discussed there are other potential treatment options that are currently not FDA approved to treat COVID-19. 6. Discussed with the patient that is not an exclusion for convalescent plasma treatment, but the therapy has not been fully evaluated in patients. 7. Offered the opportunity to ask questions and all questions were answered. 8. Sonya voiced understanding and agreed to proceed with treatment for Sonya. 1. I spoke with Sonya to provide information about Remdesvir for her. 2. I offered them the Facts Sheet for Patients and Parents/Caregivers for COVID-19 Remdesvir to read and review. 3. I stated that the therapy has been approved by the Emergency Use Authorization (EUA) process and not fully been FDA reviewed or approved. 4. The patient meets EUA requirements. 5. I shared that the drug may cause liver abnormalities and infusion related side effects. Additionally, other side effects are possible but not known as the drug has had limited studies. 6. I discussed there are other potential treatment options that are currently not FDA approved to treat COVID-19. Plasma treatment, but the therapy has not been fully evaluated in patients. 7. Discussed with the patient that is not an exclusion for Remdesvir treatment. 8. Offered the opportunity to ask questions and all questions were answered. 9. Sonya voiced understanding and agreed to proceed with treatment for her. 08/31/2020 The patient is a 65-year-old lady who was admitted secondary to COVID-19. The patient will be continued on the COVID-19 protocol with a remdesivir, dexamethasone and anticoagulation. She is currently on Lovenox and she will continue this. The patient has been recommended to continue with a heart healthy diet. PT OT is to work with the patient. Repeat laboratory studies have been ordered for the morning in order to monitor kidney function. The patient should be appropriate for discharge after completion of the remdesivir. Case management should be able to help arrange transportation or family pickup when discharged as the patient lives in [place] an hour away. 09/01/2020 The patient is doing much better today with her COVID-19 treatment. She has been able to tolerate this. Her oxygen requirements have improved. The patient is also on a heart healthy diet. This will continue. PT OT has been working for the patient. I have encouraged patient to ambulate in her room. I have explained that she will likely be able to return home after treatment with remdesivir. The patient says that she has transportation available to return home to [place]. Repeat laboratory studies have been ordered for her.
[2020-09-01] MEDS: Dexamethasone 4 MG Tab PO SCH (08:35)
[2020-09-01] MEDS: Diltiazem 180 MG Cap.CD PO SCH (08:35)
[2020-09-01] MEDS: Enoxaparin 40 MG/0.4 ML Syringe SUBCUT SCH (08:36)
[2020-09-01] MEDS: DULoxetine 20 MG Cap PO SCH (08:36)
[2020-09-01] MEDS: LETROZOLE 2.5 MG PO SCH (11:58)
[2020-09-01] MEDS ORDERED: LETROZOLE 2.5 MG PO SCH (12:00)
[2020-09-01] MEDS: REMDESIVIR (EUA) 100 MG in Sodium Chloride 0.9% 100 ML IV SCH (13:55)
[2020-09-01] MEDS: Simvastatin 10 MG Tab PO SCH ×2 (18:44→22:01)
[2020-09-01] MEDS: Famotidine 20 MG Tab PO SCH (23:01)
--- NOTE | 2020-09-02 08:11 | PCM.PN ---
- General Info Date of Service: 09/02/20 Admission Dx/Problem (Free Text): Admission Diagnosis/Problem Admission Diagnosis/Problem Hypoxia, positive COVID-19, history of stroke with aphasia Subjective Update: The patient is a 65-year-old lady who was admitted for Covid 19 as a direct admission from [place]. The patient has been doing better today. She has been breathing better. The patient has denied any pain. She has been ambulating. Functional Status: Reports: Pain Controlled, Tolerating Diet - Review of Systems General: Reports: Weakness HEENT: Reports: No Symptoms Pulmonary: Reports: No Symptoms Cardiovascular: Reports: No Symptoms Gastrointestinal: Reports: No Symptoms Genitourinary: Reports: No Symptoms Musculoskeletal: Reports: No Symptoms Skin: Reports: No Symptoms Neurological: Reports: Pre-Existing Deficit Psychiatric: Reports: No Symptoms - Patient Data Vitals - Most Recent: Last Vital Signs Temp 36.3 C 09/02/20 00:18 Pulse 75 09/02/20 05:09 Resp 18 09/02/20 05:09 BP 128/70 09/02/20 05:09 Pulse Ox 96 09/02/20 06:12 Weight - Most Recent: 64.455 kg I&O - Last 24 Hours: Intake & Output 09/01/20 09/02/20 09/02/20 22:59 06:59 14:59 Intake Total 3070 400 Output Total 1950 900 Balance 1120 -500 Lab Results Last 24 Hours: Laboratory Results - last 24 hr 09/02/20 09/02/20 Range/Units 05:48 05:48 WBC 9.27 (3.98-10.04) K/mm3 RBC 3.94 L (3.98-5.22) M/mm3 Hgb 11.6 (11.2-15.7) gm/dl Hct 35.7 (34.1-44.9) % MCV 90.6 (79.4-94.8) fl MCH 29.4 (25.6-32.2) pg MCHC 32.5 (32.2-35.5) g/dl RDW Std Deviation 47.7 H (36.4-46.3) fL Plt Count 323 D (182-369) K/mm3 MPV 9.4 (9.4-12.3) fl Neut % (Auto) 90.1 H (34.0-71.1) % Lymph % (Auto) 5.8 L (19.3-51.7) % [place] % (Auto) 3.9 L (4.7-12.5) % Eos % (Auto) 0 L (0.7-5.8) Baso % (Auto) 0.1 (0.1-1.2) % Neut # (Auto) 8.35 H (1.56-6.13) K/mm3 Lymph # (Auto) 0.54 L (1.18-3.74) K/mm3 [place] # (Auto) 0.36 (0.24-0.36) K/mm3 Eos # (Auto) 0.00 L (0.04-0.36) K/mm3 Baso # (Auto) 0.01 (0.01-0.08) K/mm3 Manual Slide Review Abnormal smear Sodium 136 (136-145) mEq/L Potassium 3.8 (3.5-5.1) mEq/L Chloride 102 (98-107) mEq/L Carbon Dioxide 25 (21-32) mEq/L Anion Gap 12.8 (5-15) BUN 14 (7-18) mg/dL Creatinine 0.7 (0.55-1.02) mg/dL Est Cr Clr Drug Dosing 64.51 mL/min Estimated GFR (MDRD) > 60 (>60) mL/min BUN/Creatinine Ratio 20.0 H (14-18) Glucose 124 H (80-115) mg/dL Calcium 8.9 (8.5-10.1) mg/dL Total Bilirubin 0.4 (0.2-1.0) mg/dL AST 16 (15-37) U/L ALT 42 (14-59) U/L Alkaline Phosphatase 53 (46-116) U/L C-Reactive Protein 7.1 H* (<1.0) mg/dL Total Protein 6.1 L (6.4-8.2) g/dl Albumin 2.3 L (3.4-5.0) g/dl Globulin 3.8 gm/dL Albumin/Globulin Ratio 0.6 L (1-2) Med Orders - Current: Current Medications Acetaminophen (Tylenol) 650 mg PO Q4H PRN PRN Reason: Pain (Mild 1-3)/fever Dexamethasone (Dexamethasone) 6 mg PO DAILY [facility] Stop: 09/08/20 09:01 Last Admin: 09/01/20 08:35 Dose: 6 mg Documented by: Diltiazem HCl (Cardizem Cd) 180 mg PO DAILY [facility] Last Admin: 09/01/20 08:35 Dose: 180 mg Documented by: Docusate Sodium (Colace) 100 mg PO BID PRN PRN Reason: Constipation Duloxetine HCl (Cymbalta) 20 mg PO Q48H [facility] Last Admin: 09/01/20 08:36 Dose: 20 mg Documented by: Enoxaparin Sodium (Lovenox) 40 mg SUBCUT DAILY [facility] Last Admin: 09/01/20 08:36 Dose: 40 mg Documented by: Remdesivir 100 mg/ Sodium (Chloride) 100 mls @ 100 mls/hr IV Q24H [facility] Stop: 09/03/20 15:29 Last Admin: 09/01/20 13:55 Dose: 100 mls/hr Documented by: Ondansetron HCl (Zofran Odt) 4 mg PO Q6H PRN PRN Reason: nausea, able to take PO Letrozole 2.5 Mg (Ptom) 0 each PO 1200 [facility] Last Admin: 09/01/20 11:58 Dose: 1 each Documented by: Simvastatin (Zocor) 10 mg PO BEDTIME [facility] Last Admin: 09/01/20 22:01 Dose: Not Given Documented by: Sodium Chloride (Saline Flush) 10 ml FLUSH ASDIRECTED PRN PRN Reason: Keep Vein Open Temazepam (Restoril) 7.5 mg PO BEDTIME PRN PRN Reason: Sleep Discontinued Medications Dexamethasone (Dexamethasone) 6 mg IV DAILY [facility] Last Admin: 08/30/20 14:07 Dose: Not Given Documented by: Dexamethasone (Dexamethasone) 6 mg IV DAILY [facility] Last Admin: 08/31/20 08:33 Dose: 6 mg Documented by: Diltiazem HCl (Cardizem Cd) 180 mg PO DAILY [facility] Duloxetine HCl (Cymbalta) 20 mg PO DAILY [facility] Last Admin: 08/30/20 14:28 Dose: Not Given Documented by: Famotidine (Pepcid) 20 mg PO BID [facility] Last Admin: 09/01/20 23:01 Dose: Not Given Documented by: Sodium Chloride (Normal Saline) 1,000 mls @ 75 mls/hr IV ASDIRECTED [facility] Last Admin: 09/01/20 06:02 Dose: 75 mls/hr Documented by: Remdesivir 200 mg/ Sodium (Chloride) 250 mls @ 250 mls/hr IV ONETIME ONE Stop: 08/30/20 15:29 Last Admin: 08/30/20 14:27 Dose: 250 mls/hr Documented by: Sodium Chloride (Normal Saline) Confirm Administered Dose 250 mls @ as directed .ROUTE .STK-MED ONE Stop: 08/30/20 14:25 Last Admin: 08/30/20 14:29 Dose: Not Given Documented by: Letrozole 2.5 Mg 0 each PO DAILY [facility] Last Admin: 08/31/20 13:54 Dose: Not Given Documented by: Letrozole 2.5 Mg 0 each PO ONETIME ONE Stop: 08/31/20 14:01 Last Admin: 08/31/20 13:56 Dose: 1 each Documented by: - Exam Quality Assessment: Supplemental Oxygen, DVT Prophylaxis General: Alert, Oriented, Cooperative, No Acute Distress HEENT: Pupils Equal, Pupils Reactive, EOMI, Mucous Membr. Moist/[place] Neck: Supple, Trachea Midline Lungs: Clear to Auscultation, Normal Respiratory Effort Cardiovascular: Regular Rate, Irregular Rhythm (Chronic persistent atrial fibrillation) GI/Abdominal Exam: Normal Bowel Sounds, No Distention (Female) Exam: Deferred Back Exam: Normal Inspection, Full Range of Motion Extremities: Normal Inspection, No Pedal Edema Skin: Warm, Dry, Intact Neurological: No New Focal Deficit Psy/Mental Status: Alert, Normal Affect, Normal Mood Sepsis Event Note - Evaluation Sepsis Screening Result: No Definite Risk - Focused Exam Vital Signs: Vital Signs Temp Pulse Resp BP Pulse Ox Pulse Ox 09/02/20 06:12 96 09/02/20 05:09 75 18 128/70 90 L 09/02/20 00:18 36.3 C 62 20 116/68 95 09/01/20 20:43 133/76 09/01/20 20:35 76 98 09/01/20 20:34 36.6 C 82 20 97 - Problem List & Annotations (1) COVID-19 SNOMED Code(s): 341534997 Code(s): U07.1 - COVID-19 Status: Acute Priority: High Current Visit: Yes (2) Atrial fibrillation SNOMED Code(s): 03138656 Code(s): I48.91 - UNSPECIFIED ATRIAL FIBRILLATION Status: Chronic Priority: High Current Visit: Yes Qualifiers: Atrial fibrillation type: persistent (not longstanding) Qualified Code(s): I48.19 - Other persistent atrial fibrillation; I48.1 - Persistent atrial fibrillation (3) Current use of usp anticoagulation SNOMED Code(s): 936093609 Code(s): Z79.01 - SHELTER (CURRENT) USE OF ANTICOAGULANTS Status: Chronic Priority: High Current Visit: Yes (4) Aphasia SNOMED Code(s): 41923740 Code(s): R47.01 - APHASIA Status: Chronic Priority: High Current Visit: Yes (5) Personal history of stroke with residual effects SNOMED Code(s): 9499557110232 Code(s): I69.30 - UNSPECIFIED SEQUELAE OF CEREBRAL INFARCTION Status: Chronic Priority: Medium Current Visit: Yes - Problem List Review Problem List Initiated/Reviewed/Updated: Yes - My Orders Last 24 Hours: My Active Orders 09/01/20 09:00 DULoxetine [Cymbalta] 20 mg PO Q48H dexAMETHasone 6 mg PO DAILY 09/01/20 10:40 Ambulate [RC] QID 09/01/20 12:00 Patient's Own Medication [Ptom] 0 each PO 1200 - Plan Plan:: The patient is a 65-year-old lady who has been admitted as an inpatient for the treatment of Covid. The patient will be started on the Covid protocol consisting of remdesivir 200 mg x 1 dose followed by 100 mg IV daily for 4 doses. The patient also has been started on dexamethasone starting tomorrow. The patient says that she is taking Eliquis however is not in her medication reconciliation and as a result of this the patient will be started on Lovenox. The home Eliquis will be discontinued for now. I have ordered a comprehensive set of laboratory testings for the COVID-19 work-up. A portable chest x-ray is also been ordered. The patient will have a healthy diet as tolerated. PT OT has been ordered for the patient as a result of her stroke 4 years ago. The patient also has been encouraged to ambulate. Patient also has been recommended for convalescent plasma. I have discussed with the patient the risk benefits and alternatives of both remdesivir and convalescent plasma. 1. I spoke with Carola to provide information about convalescent plasma for Sonya 2. I offered them the Facts Sheet for Patients and Parents/Caregivers for COVID-19 convalescent plasma to read and review. 3. I stated that the therapy has been approved by the Emergency Use Authorization (EUA) process and not fully been FDA reviewed or approved. 4. I shared potential risk from the therapy including transmission of blood borne pathogens such as HIV and hepatitis C, allergic and transfusion related reactions, post-transfusion purpura. Additionally, theoretical risks including a phenomenon called anti-body dependent enhancement of infection such as seen in dengue fever or attenuation of an immune response that may make patients more susceptible to re-infection. 5. I discussed there are other potential treatment options that are currently not FDA approved to treat COVID-19. 6. Discussed with the patient that is not an exclusion for c onvalescent plasma treatment, but the therapy has not been fully evaluated in patients. 7. Offered the opportunity to ask questions and all questions were answered. 8. Sonya voiced understanding and agreed to proceed with treatment for Sonya. 1. I spoke with Sonya to provide information about Remdesvir for her. 2. I offered them the Facts Sheet for Patients and Parents/Caregivers for COVID-19 Remdesvir to read and review. 3. I stated that the therapy has been approved by the Emergency Use Authorization (EUA) process and not fully been FDA reviewed or approved. 4. The patient meets EUA requirements. 5. I shared that the drug may cause liver abnormalities and infusion related side effects. Additionally, other side effects are possible but not known as the drug has had limited studies. 6. I discussed there are other potential treatment options that are currently not FDA approved to treat COVID-19. Plasma treatment, but the therapy has not been fully evaluated in patients. 7. Discussed with the patient that is not an exclusion for Remdesvir treatment. 8. Offered the opportunity to ask questions and all questions were answered. 9. Sonya voiced understanding and agreed to proceed with treatment for her. 08/31/2020 The patient is a 65-year-old lady who was admitted secondary to COVID-19. The patient will be continued on the COVID-19 protocol with a remdesivir, dexamethasone and anticoagulation. She is currently on Lovenox and she will continue this. The patient has been recommended to continue with a heart heal thy diet. PT OT is to work with the patient. Repeat laboratory studies have been ordered for the morning in order to monitor kidney function. The patient should be appropriate for discharge after completion of the remdesivir. Case management should be able to help arrange transportation or family pickup when discharged as the patient lives in [place] an hour away. 09/01/2020 The patient is doing much better today with her COVID-19 treatment. She has been able to tolerate this. Her oxygen requirements have improved. The patient is also on a heart healthy diet. This will continue. PT OT has been working for the patient. I have encouraged patient to ambulate in her room. I have explained that she will likely be able to return home after treatment with remdesivir. The patient says that she has transportation available to return home to [place]. Repeat laboratory studies have been ordered for her. 09/02/2020 Overall the patient is doing much better today. She has been tolerating her COVID-19 treatment. The patient has been encouraged to ambulate. We will try to wean off of oxygen. PT OT has also been working with the patient. The patient will likely be able to return home tomorrow. The patient will also be kept on a regular diet as tolerated.
[2020-09-02] MEDS: Diltiazem 180 MG Cap.CD PO SCH (08:46)
[2020-09-02] MEDS: Dexamethasone 4 MG Tab PO SCH (08:46)
[2020-09-02] MEDS: Enoxaparin 40 MG/0.4 ML Syringe SUBCUT SCH (08:46)
[2020-09-02] MEDS: LETROZOLE 2.5 MG PO SCH (12:24)
[2020-09-02] MEDS: REMDESIVIR (EUA) 100 MG in Sodium Chloride 0.9% 100 ML IV SCH (14:20)
[2020-09-02] MEDS ORDERED: Simvastatin 10 MG Tab PO SCH (18:00)
--- NOTE | 2020-09-03 08:10 | PCM.DCSUM1 ---
Discharge Summary - Hospital Course HPI Initial Comments: The patient was a direct admission due to COVID-19 and hypoxia. Diagnosis: Stroke: No - Discharge Data Discharge Date: 09/03/20 Discharge Disposition: Home, Self-Care 01 Condition: Good - Referral to Home Health Primary Care Physician: SN Saadia - Discharge Diagnosis/Problem(s) (1) COVID-19 SNOMED Code(s): 815090943 ICD Code: U07.1 - COVID-19 Status: Acute Priority: High Current Visit: Yes (2) Atrial fibrillation SNOMED Code(s): 67424717 ICD Code: I48.91 - UNSPECIFIED ATRIAL FIBRILLATION Status: Chronic Priority: High Current Visit: Yes Qualifiers: Atrial fibrillation type: persistent (not longstanding) Qualified Code(s): I48.19 - Other persistent atrial fibrillation; I48.1 - Persistent atrial fibrillation (3) Current use of predatory animal exterminator anticoagulation SNOMED Code(s): 456309078 ICD Code: Z79.01 - SENIOR CARE (CURRENT) USE OF ANTICOAGULANTS Status: Chronic Priority: High Current Visit: Yes (4) Aphasia SNOMED Code(s): 54885646 ICD Code: R47.01 - APHASIA Status: Chronic Priority: High Current Visit: Yes (5) Personal history of stroke with residual effects SNOMED Code(s): 0864316832077 ICD Code: I69.30 - UNSPECIFIED SEQUELAE OF CEREBRAL INFARCTION Status: Chronic Priority: Medium Current Visit: Yes - Patient Summary/Data Consults: Consultations 08/30/20 13:44 OT Evaluation and Treatment [CONS] Routine PT Evaluation and Treatment [CONS] Routine Hospital Course: The patient is a 65-year-old lady who has a history of CVA with residual expressive aphasia was a direct admission from [place] for COVID-19 and hypoxia. The patient was kept on oxygen to help keep her saturations around 90%. The patient was also started on Covid 19 protocol. She was started on remdesivir 200 mg initially followed by remdesivir 100 mg daily for 4 doses. She was also started on dexamethasone 6 mg IV then changed to p.o. The patient was also ordered to receive 2 units of convalescent plasma which she tolerated well without problem. The patient had continue to improve through her course of hospitalization. Her oxygen demands had improved markedly. She was recommended to go home on oxygen 2 L/min via nasal cannula. The patient does have a history of atrial fibrillation which is chronic and she has been using Eliquis and she has been recommended to continue this. The patient also has been sent home on dexamethasone 6 mg p.o. daily for an additional 6 days. The patient has been recommended to follow-up with her primary care physician. By day of discharge the patient was otherwise stable. She states that she felt well enough to go home. The patient has been recommended to continue with her diet as tolerated. She is also to have activity as tolerated. The patient has been hemodynamically stable and she is discharged home with the above recommendations. - Patient Instructions Diet: Usual Diet as Tolerated Activity: As Tolerated - Discharge Plan *PRESCRIPTION DRUG MONITORING PROGRAM REVIEWED*: Not Applicable *COPY OF PRESCRIPTION DRUG MONITORING REPORT IN PATIENT MELINDA: Not Applicable Prescriptions/Med Rec: dexAMETHasone [Dexamethasone] 6 mg PO DAILY #6 tablet Home Medications: Home Meds Acetaminophen [Tylenol Extra Strength] 500 mg PO Q6HR PRN 08/30/20 [History] Apixaban [Eliquis] 5 mg PO BID 08/30/20 [History] DULoxetine [Cymbalta] 20 mg PO ASDIRECTED 08/30/20 [History] Letrozole [Femara] 2.5 mg PO DAILY 08/30/20 [History] atorvaSTATin [Lipitor] 10 mg PO PCDINNER 08/30/20 [History] dilTIAZem HCL [Cartia Xt] 180 mg PO DAILY 08/30/20 [History] Patient's Own Medication [Ptom] 0 each PO 1200 each 09/03/20 [Rx] dexAMETHasone [Dexamethasone] 6 mg PO DAILY #6 tablet 09/03/20 [Rx] Oxygen Therapy Mode: Nasal Cannula Oxygen Flow Rate (L/min): 2 Maintain SpO2% greater than: 90 Patient Handouts: COVID-19 Frequently Asked Questions, COVID-19 Referrals: Kayli Man [Primary Care Provider] - - Discharge Summary/Plan Comment DC Time >30 min.: Yes - General Info Date of Service: 09/03/20 Admission Dx/Problem (Free Text: Admission Diagnosis/Problem Admission Diagnosis/Problem Hypoxia, positive COVID-19, history of stroke with aphasia Subjective Update: The patient was admitted due to COVID-19 and hypoxia. The patient is much improved today. She has been tolerating diet. The patient feels like she can go home. Functional Status: Reports: Pain Controlled, Tolerating Diet - Review of Systems General: Reports: No Symptoms HEENT: Reports: No Symptoms Pulmonary: Reports: No Symptoms Cardiovascular: Reports: No Symptoms Gastrointestinal: Reports: No Symptoms Genitourinary: Reports: No Symptoms Musculoskeletal: Reports: No Symptoms Skin: Reports: No Symptoms Neurological: Reports: No Symptoms Psychiatric: Reports: No Symptoms - Patient Data Vitals - Most Recent: Last Vital Signs Temp 36.8 C 09/03/20 04:52 Pulse 70 09/03/20 04:52 Resp 14 09/03/20 04:52 BP 122/66 09/03/20 04:52 Pulse Ox 91 L 09/03/20 04:52 Weight - Most Recent: 64.954 kg I&O - Last 24 hours: Intake & Output 09/02/20 09/03/20 09/03/20 22:59 06:59 14:59 Intake Total 2920 500 Output Total 1950 1600 Balance 970 -1100 Lab Results - Last 24 hrs: Laboratory Results - last 24 hr 09/03/20 09/03/20 09/03/20 Range/Units 06:15 06:15 06:15 WBC 7.46 (3.98-10.04) K/mm3 RBC 3.89 L (3.98-5.22) M/mm3 Hgb 11.5 (11.2-15.7) gm/dl Hct 35.3 (34.1-44.9) % MCV 90.7 (79.4-94.8) fl MCH 29.6 (25.6-32.2) pg MCHC 32.6 (32.2-35.5) g/dl RDW Std Deviation 46.6 H (36.4-46.3) fL Plt Count 321 (182-369) K/mm3 MPV 9.3 L (9.4-12.3) fl Neut % (Auto) 86.2 H (34.0-71.1) % Lymph % (Auto) 8.3 L (19.3-51.7) % [place] % (Auto) 5.1 (4.7-12.5) % Eos % (Auto) 0 L (0.7-5.8) Baso % (Auto) 0.1 (0.1-1.2) % Neut # (Auto) 6.43 H (1.56-6.13) K/mm3 Lymph # (Auto) 0.62 L (1.18-3.74) K/mm3 [place] # (Auto) 0.38 H (0.24-0.36) K/mm3 Eos # (Auto) 0.00 L (0.04-0.36) K/mm3 Baso # (Auto) 0.01 (0.01-0.08) K/mm3 D-Dimer, Quantitative 0.91 H (0.19-0.50) mg/L Sodium 137 (136-145) mEq/L Potassium 4.2 (3.5-5.1) mEq/L Chloride 103 (98-107) mEq/L Carbon Dioxide 27 (21-32) mEq/L Anion Gap 11.2 (5-15) BUN 17 (7-18) mg/dL Creatinine 0.7 (0.55-1.02) mg/dL Est Cr Clr Drug Dosing 64.51 mL/min Estimated GFR (MDRD) > 60 (>60) mL/min BUN/Creatinine Ratio 24.3 H (14-18) Glucose 122 H (80-115) mg/dL Calcium 8.7 (8.5-10.1) mg/dL Total Bilirubin 0.3 (0.2-1.0) mg/dL AST 16 (15-37) U/L ALT 39 (14-59) U/L Alkaline Phosphatase 47 (46-116) U/L C-Reactive Protein 4.3 H* (<1.0) mg/dL Total Protein 5.8 L (6.4-8.2) g/dl Albumin 2.3 L (3.4-5.0) g/dl Globulin 3.5 gm/dL Albumin/Globulin Ratio 0.7 L (1-2) Med Orders - Current: Current Medications Acetaminophen (Tylenol) 650 mg PO Q4H PRN PRN Reason: Pain (Mild 1-3)/fever Dexamethasone (Dexamethasone) 6 mg PO DAILY [facility] Stop: 09/08/20 09:01 Last Admin: 09/02/20 08:46 Dose: 6 mg Documented by: Diltiazem HCl (Cardizem Cd) 180 mg PO DAILY [facility] Last Admin: 09/02/20 08:46 Dose: 180 mg Documented by: Docusate Sodium (Colace) 100 mg PO BID PRN PRN Reason: Constipation Duloxetine HCl (Cymbalta) 20 mg PO Q48H [facility] Last Admin: 09/01/20 08:36 Dose: 20 mg Documented by: Enoxaparin Sodium (Lovenox) 40 mg SUBCUT DAILY [facility] Last Admin: 09/02/20 08:46 Dose: 40 mg Documented by: Remdesivir 100 mg/ Sodium (Chloride) 100 mls @ 100 mls/hr IV Q24H [facility] Stop: 09/03/20 15:29 Last Admin: 09/02/20 14:20 Dose: 100 mls/hr Documented by: Ondansetron HCl (Zofran Odt) 4 mg PO Q6H PRN PRN Reason: nausea, able to take PO Letrozole 2.5 Mg (Ptom) 0 each PO 1200 [facility] Last Admin: 09/02/20 12:24 Dose: 2.5 each Documented by: Simvastatin (Zocor) 10 mg PO QPM [facility] Last Admin: 09/02/20 17:29 Dose: 10 mg Documented by: Sodium Chloride (Saline Flush) 10 ml FLUSH ASDIRECTED PRN PRN Reason: Keep Vein Open Temazepam (Restoril) 7.5 mg PO BEDTIME PRN PRN Reason: Sleep Discontinued Medications Dexamethasone (Dexamethasone) 6 mg IV DAILY [facility] Last Admin: 08/30/20 14:07 Dose: Not Given Documented by: Dexamethasone (Dexamethasone) 6 mg IV DAILY [facility] Last Admin: 08/31/20 08:33 Dose: 6 mg Documented by: Diltiazem HCl (Cardizem Cd) 180 mg PO DAILY [facility] Duloxetine HCl (Cymbalta) 20 mg PO DAILY [facility] Last Admin: 08/30/20 14:28 Dose: Not Given Documented by: Famotidine (Pepcid) 20 mg PO BID [facility] Last Admin: 09/01/20 23:01 Dose: Not Given Documented by: Sodium Chloride (Normal Saline) 1,000 mls @ 75 mls/hr IV ASDIRECTED [facility] Last Admin: 09/01/20 06:02 Dose: 75 mls/hr Documented by: Remdesivir 200 mg/ Sodium (Chloride) 250 mls @ 250 mls/hr IV ONETIME ONE Stop: 08/30/20 15:29 Last Admin: 08/30/20 14:27 Dose: 250 mls/hr Documented by: Sodium Chloride (Normal Saline) Confirm Administered Dose 250 mls @ as directed .ROUTE .STK-MED ONE Stop: 08/30/20 14:25 Last Admin: 08/30/20 14:29 Dose: Not Given Documented by: Letrozole 2.5 Mg 0 each PO DAILY [facility] Last Admin: 08/31/20 13:54 Dose: Not Given Documented by: Letrozole 2.5 Mg 0 each PO ONETIME ONE Stop: 08/31/20 14:01 Last Admin: 08/31/20 13:56 Dose: 1 each Documented by: Simvastatin (Zocor) 10 mg PO BEDTIME [facility] Last Admin: 09/01/20 22:01 Dose: Not Given Documented by: - Exam Quality Assessment: Reports: Supplemental Oxygen, DVT Prophylaxis General: Reports: Alert, Oriented, Cooperative HEENT: Reports: Pupils Equal, Pupils Reactive, EOMI Neck: Reports: Supple, Trachea Midline Lungs: Reports: Clear to Auscultation, Normal Respiratory Effort Cardiovascular: Reports: Regular Rate, Irregular Rhythm GI/Abdominal Exam: Normal Bowel Sounds, Soft, No Distention (Female) Exam: Deferred Rectal (Female) Exam: Deferred Back Exam: Reports: Normal Inspection, Full Range of Motion Extremities: Normal Inspection, Normal Range of Motion, No Pedal Edema Skin: Reports: Warm, Dry, Intact Neurological: Reports: No New Focal Deficit Psy/Mental Status: Reports: Alert, Normal Affect, Normal Mood
[2020-09-03] MEDS: Diltiazem 180 MG Cap.CD PO SCH (09:03)
[2020-09-03] MEDS: Dexamethasone 4 MG Tab PO SCH (09:03)
[2020-09-03] MEDS: DULoxetine 20 MG Cap PO SCH (09:03)
[2020-09-03] MEDS: Enoxaparin 40 MG/0.4 ML Syringe SUBCUT SCH (09:07)
[2020-09-03] MEDS: LETROZOLE 2.5 MG PO SCH (11:58)
[2020-09-03 12:59] VITALS: BP 131/72; PULSE 78
[2020-09-03] MEDS: REMDESIVIR (EUA) 100 MG in Sodium Chloride 0.9% 100 ML IV SCH (13:59)
--- NOTE | 2020-09-07 12:13 | CR ---
PROCEDURE INFORMATION: Exam: XR Chest, 1 View Exam date and time: 08/30/2020 1:39 PM Age: 65 years old Clinical indication: Cough and other: Covid positive TECHNIQUE: Imaging protocol: XR of the chest Views: 1 view. COMPARISON: No relevant prior studies available. FINDINGS: Lungs: Probable background of chronic lung change. Slightly more focal ground- glass opacity in the left mid and left lower lung. Pleural space: Unremarkable. No pleural effusion. No pneumothorax. Heart/Mediastinum: Unremarkable. No cardiomegaly. Vasculature: Tortuous thoracic aorta. Bones/joints: Unremarkable. IMPRESSION: Patchy ground-glass consolidation in the left mid and lower lung suspicious for pneumonia. Thank you for allowing us to participate in the care of your patient. Dictated and Authenticated by: Dar Obregon MD 08/30/2020 3:37 PM Central Time ([place] & [place]) [facility]
== END 2020-09-03 15:25 | disposition home or self-care (01) | DRG 177 ==
LOC: JD.MS 12:46
PROVIDERS: ADMIT Internal Medicine; ATTEND Internal Medicine
PROC: XW033E5 Introduction of Remdesivir Anti-infective into Peripheral Vein, Percutaneous Approach, New Technology Group 5 (ICD-10-PCS; principal; 2020-08-30)
PROC: XW13325 Transfusion of Convalescent Plasma (Nonautologous) into Peripheral Vein, Percutaneous Approach, New Technology Group 5 (ICD-10-PCS; 2020-08-30)
DX: U07.1 COVID-19 (principal); J12.89 Other viral pneumonia; I48.19 Other persistent atrial fibrillation; I69.320 Aphasia following cerebral infarction; H54.7 Unspecified visual loss; R09.02 Hypoxemia; K59.09 Other constipation; E78.00 Pure hypercholesterolemia, unspecified; K21.9 Gastro-esophageal reflux disease without esophagitis; M54.9 Dorsalgia, unspecified; G89.29 Other chronic pain; M19.90 Unspecified osteoarthritis, unspecified site; G62.9 Polyneuropathy, unspecified; Z98.49 Cataract extraction status, unspecified eye; Z79.01 Long term (current) use of anticoagulants; Z91.040 Latex allergy status; Z88.8 Allergy status to other drugs, medicaments and biological substances; Z79.899 Other long term (current) drug therapy; Z90.49 Acquired absence of other specified parts of digestive tract
CPT/HCPCS: 36415; 36430; 71045; 71045-26; 80053; 82306; 82728; 83615; 83735; 83880; 84100; 84145; 84484; 85025; 85379; 86140; 86900; 86901; 94667; 94760; 94761; 97116-GP; 97162-GP; 97165-GO; 97530-GP; 97535-GO; 99222; 99232; 99239; A9270-GY; J1100; J1650; J7030; J7050; J8540; P9017